=== PATIENT | female | born 1990 | race Caucasian/White ===

== ENCOUNTER 2016-11-21 19:14 | Emergency (ER) | payer SELFPAY ==
[2016-11-21] MEDS ORDERED: KEFLEX500 M4 PO (19:57)
== END 2016-11-21 20:50 ==
LOC: EDMED 19:14
DX: S51.031A Puncture wound without foreign body of right elbow, initial encounter (principal); L08.9 Local infection of the skin and subcutaneous tissue, unspecified; L03.113 Cellulitis of right upper limb; Z23 Encounter for immunization; F17.200 Nicotine dependence, unspecified, uncomplicated; W26.8XXA Contact with other sharp object(s), not elsewhere classified, initial encounter
CPT/HCPCS: J0696